=== PATIENT | female | born 1935 | race Caucasian/White ===

== ENCOUNTER 2017-01-15 08:32 | Observation (INO) | payer OTHER, BC ==
[~2017-01-15] VITALS: Ht 172.7 cm; Wt 98.2 kg
[~2017-01-15 08:32] MED LIST: CALCIUM500 M4 PO; COUMADIN2.5 MG PO; COUMADIN5 MG PO; FLECAINIDE ACE100 MG PO; HYDROCHLOROTHIA25 MG PO; METOPROLOL SUCC25 MG PO; VITAMIN D1000 INTUN PO
[2017-01-15 09:00] LABS: HEMATOCRIT 50.4 % (36.0-46.0); MCH 30.4 PG (29.0-34.0); MCHC 32.9 G/DL (30.0-36.0); MCV 92.3 FL (83-99); PLATELET COUNT 233 K/uL (156-360); RBC DIS.WIDTH-CV 14.1 % (11.8-14.6); RBC DIS.WIDTH-SD 47.6 % (39-53); RED BLOOD COUNT 5.46 M/uL (3.80-5.20); WHITE BLOOD COUNT 6.6 K/uL (4.1-10.2)
[2017-01-15 09:21] LABS: TROP-I INTERPRETATION NEGATIVE; TROPONIN-I 0.03 ng/mL (0.0-0.30)
[2017-01-15 09:30] LABS: CHLORIDE 108 mEq/L (99-109)
[2017-01-15 09:31] LABS: POTASSIUM 4.4 mEq/L (3.7-5.4); SODIUM 142 mEq/L (136-147)
[2017-01-15 09:32] LABS: GLUCOSE 112 mg/dL (70-99)
[2017-01-15 09:34] LABS: ANION GAP 11 MEQ/L (2-14)
[2017-01-15 09:36] LABS: GFR ESTIMATE (CALCULATED) 51 mL/min/
[2017-01-15 09:37] LABS: UREA NITROGEN (BUN) 26 mg/dL (9-23)
[2017-01-15 10:08] LABS: INTER. NORMALIZED RATIO 2.6; PROTHROMBIN TIME 26.8 (9.2-11.2)
[2017-01-15] MEDS ORDERED: CALCIUM 500 +1 EACH PO (11:24)
[2017-01-15] MEDS ORDERED: SYNTHROID100 MCG PO (11:25)
[2017-01-15 13:35] VITALS: BP 130/80
[2017-01-15 13:52] VITALS: BP 130/80
[2017-01-15 15:23] VITALS: BP 114/68
[2017-01-15 15:51] LABS: TROP-I INTERPRETATION NEGATIVE; TROPONIN-I 0.05 ng/mL (0.0-0.30)
[2017-01-15 17:33] VITALS: BP 98/58
[2017-01-15 18:59] VITALS: BP 120/68
[2017-01-15 21:32] LABS: TROP-I INTERPRETATION NEGATIVE; TROPONIN-I 0.04 ng/mL (0.0-0.30)
[2017-01-15 22:41] VITALS: BP 110/60
[2017-01-16 04:56] VITALS: BP 120/68
[2017-01-16 07:00] VITALS: BP 138/80
[2017-01-16 07:27] LABS: INTER. NORMALIZED RATIO 2.4; PROTHROMBIN TIME 24.8 (9.2-11.2)
[2017-01-16 07:39] LABS: TROP-I INTERPRETATION NEGATIVE; TROPONIN-I 0.02 ng/mL (0.0-0.30)
[2017-01-16 11:15] VITALS: BP 140/80
[2017-01-16] MEDS ORDERED: METOPROLOL TART25 MG PO (14:04)
== END 2017-01-16 16:26 | disposition home or self-care (01) ==
LOC: EME 08:32 → 4EAST 12:09 → EDOF 12:09 → 4EAST 13:15
PROVIDERS: Emergency Medicine; Internal Medicine; Internal Medicine Interventional Cardiology
DX: I48.0 Paroxysmal atrial fibrillation (principal); T80.1XXA Vascular complications following infusion, transfusion and therapeutic injection, initial encounter; I80.9 Phlebitis and thrombophlebitis of unspecified site; G47.30 Sleep apnea, unspecified; E03.9 Hypothyroidism, unspecified; I10 Essential (primary) hypertension; Z86.711 Personal history of pulmonary embolism; Z86.718 Personal history of other venous thrombosis and embolism; Z79.01 Long term (current) use of anticoagulants; E66.9 Obesity, unspecified; Z68.32 Body mass index [BMI] 32.0-32.9, adult
CPT/HCPCS: 71010; 71260; 80048; 83735; 84484; 85027; 85610; 93005; 99281; 99285; G0378; J1160; J7050

== ENCOUNTER 2017-03-10 08:33 | Day surgery (SDC) | payer OTHER, BC ==
[~2017-03-10] VITALS: Ht 175.3 cm; Wt 95.0 kg
[~2017-03-10 08:33] MED LIST changes: +AMIODARONE HCL200 MG PO; +CALCIUM 500 +1 EACH PO; +CALCIUM 600 +1 EAC4 PO; +METOPROLOL TART25 MG PO; +SYNTHROID100 MCG PO; +TOPROL XL25 MG PO
== END 2017-03-10 11:45 | disposition home or self-care (01) ==
LOC: CATH 08:33
PROC: 5A2204Z Restoration of Cardiac Rhythm, Single (ICD-10-PCS; principal; 2017-03-10)
DX: I48.1 Persistent atrial fibrillation (principal); I48.3 Typical atrial flutter; I10 Essential (primary) hypertension; I27.2 Other secondary pulmonary hypertension; G47.33 Obstructive sleep apnea (adult) (pediatric); E24.9 Cushing's syndrome, unspecified; Z86.711 Personal history of pulmonary embolism; Z88.0 Allergy status to penicillin; Z86.718 Personal history of other venous thrombosis and embolism; Z79.01 Long term (current) use of anticoagulants; E04.9 Nontoxic goiter, unspecified
CPT/HCPCS: 93005

== ENCOUNTER 2018-04-19 09:01 | Day surgery (SDC) | payer OTHER, BC ==
[~2018-04-19] VITALS: Ht 172.7 cm; Wt 91.0 kg
== END 2018-04-19 11:50 | disposition home or self-care (01) ==
LOC: CATH 09:01
PROC: 5A2204Z Restoration of Cardiac Rhythm, Single (ICD-10-PCS; principal; 2018-04-19)
DX: I48.0 Paroxysmal atrial fibrillation (principal); I10 Essential (primary) hypertension; E03.9 Hypothyroidism, unspecified; Z79.01 Long term (current) use of anticoagulants; Z86.718 Personal history of other venous thrombosis and embolism; Z86.711 Personal history of pulmonary embolism
CPT/HCPCS: 93005